=== PATIENT | female | born 1975 | race Caucasian/White ===

== ENCOUNTER 2018-01-03 08:30 | Emergency (ER) | payer OTHER ==
[~2018-01-03 08:30] MED LIST changes: -CEPH500T7 PO; -DOCU-202 PO; -METH-543 PO; -NAPR375T44 PO; -OXYC-373 PO; -PANT20TA27 PO; -SULF1TAB24 PO; -TRAM-420 PO
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
[2018-01-03] MEDS ORDERED: NAPROXEN 500 MG TAB PO ONE (08:40)
[2018-01-03] MEDS ORDERED: NAPR375T44 PO (09:14)
[2018-01-03] MEDS ORDERED: CEPH500T7 PO (09:14)
[2018-01-03 09:31] VITALS: BP 127/75
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
[2018-01-03] MEDS ORDERED: METH-543 PO (09:46)
== END 2018-01-03 09:48 | disposition home or self-care (01) ==
LOC: ER 08:33
DX: N30.00 Acute cystitis without hematuria (principal); M54.5 Low back pain; V43.52XA Car driver injured in collision with other type car in traffic accident, initial encounter
CPT/HCPCS: 72072; 72120; 81001; 99283

== ENCOUNTER 2018-01-03 13:18 | Inpatient (IN) | payer OTHER ==
[2018-01-03] VITALS (13 sets, daily range): BP systolic 81–113; BP diastolic 48–81
[~2018-01-03] VITALS: Ht 172.7 cm; Wt 104.8 kg
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
[~2018-01-03 13:18] MED LIST changes: +CEPH500T7 PO; +METH-543 PO; +NAPR375T44 PO
[2018-01-03] MEDS ORDERED: NS(*) 0.9% 1000 ML BAG 1,000 ML IV ONE ×2 (13:19→15:50)
[2018-01-03] MEDS ORDERED: IOPAMIDOL 76% 75 ML INFUS BTL 75 ML ONE (13:31)
[2018-01-03 13:32] LABS: PLATELET COUNT, AUTOMATED 493 K/uL (150-450)
--- NOTE | 2018-01-03 13:41 | EKG ---
FACILITY: [facility] - [place] PATIENT NAME: MURTAZA SMALLS : [id number] MR: [id number] V: [id number] EXAM DATE: ORDERING PHYSICIAN: DAVIDA FERRO TECHNOLOGIST: FAIZAN Martínez Reason : SYNCOPE Blood Pressure : / mmHG Vent. Rate : 099 BPM Atrial Rate : 099 BPM P-R Int : 130 ms QRS Dur : 080 ms QT Int : 328 ms P-R-T Axes : 048 020 039 degrees QTc Int : 420 ms Normal sinus rhythm Normal ECG No previous ECGs available Confirmed by SOFIA LOCK ([id number]) on 01/03/2018 11:23:58 PM Referred By: PILLO Confirmed By:SOFIA LOCK
[2018-01-03] MEDS ORDERED: EMS NS 0.9%(*) 1000 ML BAG 1,000 ML IV ONE (13:50)
--- NOTE | 2018-01-03 14:52 | RADIOLOGY IMAGING REPORT ---
[place] [facility] [place] NAME: Francine Renteria : 1975 MR: [id number] V: [id number] EXAM DATE: ORDERING PHYSICIAN: DAVIDA FERRO TECHNOLOGIST: Location: [facility] - [place] Patient: Francine Renteria : 1975 Visit/Account:[id number] Date of Sevice: 01/03/2018 EXAMINATION: CT Head without intravenous contrast CT Cervical spine without intravenous contrast HISTORY: Trauma TECHNIQUE: Head: Axial images were obtained from the skull base to the vertex without intravenous contrast. Sa gittal and coronal reformatted images are also submitted. Cervical spine: Axial images were obtained from the skull base through the upper thoracic spine with out IV contrast administration. Coronal and sagittal reformatted images were obtained from the axial source data. One of the following dose optimization techniques was utilized in the performance of this exam: Autom ated exposure control; adjustment of the mA and/or kV according to the patient's size; or use of an i terative reconstruction technique. Specific details can be referenced in the facility's radiology C T exam operational policy. COMPARISON: None. FINDINGS: HEAD: Brain volume: Normal. Ventricles: Negative. Acute ischemic changes: None. Hemorrhage: None. Masses / edema: None. Odell-white: Negative. White matter: Negative. Vessels: Negative. Extra-axial: Negative. Calvarium / skull base: Negative. Visualized sinuses / orbits: Mild mucosal thickening in the left maxillary sinus. Mild aerated secre tions in the right sphenoid sinus. Rightward nasal septal deviation. CERVICAL SPINE: Alignment: Straightening and slight reversal of the normal lordosis with mild convex rightward curvat ure. Cranio-cervical junction: Small bone island in the right superior C2 vertebral body. Otherwise negati ve. Vertebral bodies: Negative. Posterior elements: Negative. Hardware: None. Disc Spaces: Degenerative disc disease at C4-C5, C5-C6, and C6-C7. Soft tissues: Negative. Visualized upper chest: Trace left pneumothorax. IMPRESSION: 1. No acute intracranial abnormality. 2. No acute cervical spine fracture. Multilevel degenerative disc disease with straightening of the n ormal lordosis and mild convex rightward curvature. 3. Trace left pneumothorax. Results were called to DAVIDA FERRO at 01/03/2018 2:47 PM. Report Dictated By: Adair Marinelli MD at 01/03/2018 2:26 PM Report E-Signed By: Adair Marinelli MD at 01/03/2018 2:48 PM WSN:[id number]
--- NOTE | 2018-01-03 14:52 | RADIOLOGY IMAGING REPORT ---
FACILITY: [facility] PATIENT NAME: Francine Renteria : 1975 MR: [id number] V: [id number] EXAM DATE: ORDERING PHYSICIAN: DAVIDA FERRO TECHNOLOGIST: Location: [facility] [place] Patient: Francine Renteria : 1975 Visit/Account:[id number] Date of Sevice: 01/03/2018 EXAMINATION: CT chest with IV contrast CT abdomen with IV contrast CT pelvis with IV contrast HISTORY: Trauma. TECHNIQUE: Spiral scan was obtained through the chest, abdomen and pelvis during injection of nonio mable iodinated intravenous contrast. Sagittal and coronal reformatted images are also submitted. One of the following dose optimization techniques was utilized in the performance of this exam: Autom ated exposure control; adjustment of the mA and/or kV according to the patient's size; or use of an i terative reconstruction technique. Specific details can be referenced in the facility's radiology C T exam operational policy. CONTRAST: 75 mL of IV Isovue-370 COMPARISON: None. FINDINGS: CT THORAX: Lungs / pleura: Trace left pneumothorax. Otherwise negative. Mediastinum / natacha: Small hiatal hernia. Heart / pericardium: Negative. Vessels: Negative. Musculoskeletal / Body wall: Bone island in the right humeral head. Nondisplaced left lateral 7th ri b fracture. Healed left lateral 6th rib fracture. Nondisplaced left anterior 4th, 5th, and 6th rib fr actures. Lymph node assessment: Negative. Lower neck: Negative. CT ABDOMEN AND PELVIS: Liver / biliary: Cholelithiasis without evidence of acute cholecystitis. Otherwise negative. Pancreas: Negative. Spleen: There are 2 small lacerations in the lateral spleen measuring up to 2.8 cm in length. Large s ubcapsular hematoma measuring up to 2.8 cm in thickness. Moderate hemoperitoneum. No contrast extrava sation. Adrenal glands: Negative. Kidneys: Negative. Pelvic structures: Negative. Bowel: Mild colonic diverticulosis. No evidence of acute diverticulitis. Normal appendix. No bowel ob struction or bowel wall thickening. Peritoneum / retroperitoneum / mesenteries: Moderate hemoperitoneum. No free air. Vessels: Negative. Musculoskeletal / Body wall: Mildly displaced left L1-L4 transverse process fractures. Lymph node assessment: Negative. IMPRESSION: 1. Two small splenic lacerations the lateral spleen measuring up to 2.8 cm in length. Large subcapsul ar hematoma surrounding the spleen measuring up to 2.8 cm in thickness. Moderate hemoperitoneum. No c ontrast extravasation. Findings are consistent with grade 3 splenic injury. 2. Trace left pneumothorax. 3. Nondisplaced left anterior 4th, 5th, and 6th rib fractures. Nondisplaced left lateral 7th rib frac ture. 4. Mildly displaced left L1-L4 transverse process fractures. 5. Cholelithiasis with no evidence of acute cholecystitis. 6. Small hiatal hernia. 7. Mild colonic diverticulosis with no evidence of acute diverticulitis. Results were called to DAVIDA FERRO at 01/03/2018 2:44 PM. Report Dictated By: Adair Marinelli MD at 01/03/2018 2:33 PM Report E-Signed By: Adair Marinelli MD at 01/03/2018 2:47 PM WSN:[id number]
--- NOTE | 2018-01-03 14:53 | RADIOLOGY IMAGING REPORT ---
[place] [facility] [place] NAME: Francine Renteria : 1975 MR: [id number] V: [id number] EXAM DATE: ORDERING PHYSICIAN: DAVIDA FERRO TECHNOLOGIST: Location: [facility] - [place] Patient: Francine Renteria : 1975 Visit/Account:[id number] Date of Sevice: 01/03/2018 EXAMINATION: CT Head without intravenous contrast CT Cervical spine without intravenous contrast HISTORY: Trauma TECHNIQUE: Head: Axial images were obtained from the skull base to the vertex without intravenous contrast. Sa gittal and coronal reformatted images are also submitted. Cervical spine: Axial images were obtained from the skull base through the upper thoracic spine with out IV contrast administration. Coronal and sagittal reformatted images were obtained from the axial source data. One of the following dose optimization techniques was utilized in the performance of this exam: Autom ated exposure control; adjustment of the mA and/or kV according to the patient's size; or use of an i terative reconstruction technique. Specific details can be referenced in the facility's radiology C T exam operational policy. COMPARISON: None. FINDINGS: HEAD: Brain volume: Normal. Ventricles: Negative. Acute ischemic changes: None. Hemorrhage: None. Masses / edema: None. Odell-white: Negative. White matter: Negative. Vessels: Negative. Extra-axial: Negative. Calvarium / skull base: Negative. Visualized sinuses / orbits: Mild mucosal thickening in the left maxillary sinus. Mild aerated secre tions in the right sphenoid sinus. Rightward nasal septal deviation. CERVICAL SPINE: Alignment: Straightening and slight reversal of the normal lordosis with mild convex rightward curvat ure. Cranio-cervical junction: Small bone island in the right superior C2 vertebral body. Otherwise negati ve. Vertebral bodies: Negative. Posterior elements: Negative. Hardware: None. Disc Spaces: Degenerative disc disease at C4-C5, C5-C6, and C6-C7. Soft tissues: Negative. Visualized upper chest: Trace left pneumothorax. IMPRESSION: 1. No acute intracranial abnormality. 2. No acute cervical spine fracture. Multilevel degenerative disc disease with straightening of the n ormal lordosis and mild convex rightward curvature. 3. Trace left pneumothorax. Results were called to DAVIDA FERRO at 01/03/2018 2:47 PM. Report Dictated By: Adair Marinelli MD at 01/03/2018 2:26 PM Report E-Signed By: Adair Marinelli MD at 01/03/2018 2:48 PM WSN:[id number]
[2018-01-03] MEDS ORDERED: fentaNYL CITR 100 MCG/2 ML AMP IVP ONE (15:50)
[2018-01-03] MEDS ORDERED: ONDANSETRON 4 MG/2 ML VIAL IVP ONE (15:50)
--- NOTE | 2018-01-03 15:54 | RADIOLOGY IMAGING REPORT ---
[place] [facility] [place] Francine Renteria : 1975 MR: [id number] V: [id number] EXAM DATE: ORDERING PHYSICIAN: VANDANA TATE TECHNOLOGIST: Location: [facility] Patient: Francine Renteria : 1975 Visit/Account:[id number] Date of Sevice: 01/03/2018 Exam type: CHEST SINGLE AP History: eval for pneumothorax Comparison: Two-view chest July 03, 2017. And CT chest abdomen pelvis performed today Findings: The trace left-sided pneumothorax was better depicted on today's CT of the chest. There may be a tra ce pneumothorax or pneumomediastinum along the left heart border. The lungs appear free of consolida tion. No demonstration of a pleural effusion. Cardiac silhouette is normal in size. The trachea is in midline. IMPRESSION: 1. There may be a trace pneumothorax or pneumomediastinum along the left lateral heart border Report Dictated By: Annie Ely MD at 01/03/2018 3:46 PM Report E-Signed By: Annie Ely MD at 01/03/2018 3:50 PM WSN:[email or web address]
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
[2018-01-03] MEDS ORDERED: NALOXONE HCL 0.4 MG/ML VIAL IVP PRN (17:20)
[2018-01-03] MEDS ORDERED: MORPHINE 1 MG/ML 30 ML PCA IV PRN (17:20)
[2018-01-03] MEDS: D5 1/2 NS(*) 1000 ML BAG 1,000 ML IV PRN (18:20)
[2018-01-03 20:34] LABS: INR 1.04
[2018-01-03] MEDS: TRIMETH/SULFA DS 160-800MG TAB PO SCH (20:48)
[2018-01-04] VITALS (43 sets, daily range): BP systolic 78–116; BP diastolic 51–80; Ht 172.7 cm; Wt 104.8 kg
[2018-01-04] MEDS: ACETAMINOPHEN 500 MG TAB PO SCH ×3 (01:07→17:07)
[2018-01-04] MEDS ORDERED: CALCIUM CARBONATE 500 MG CHEW PO PRN (01:20)
[2018-01-04] MEDS: D5 1/2 NS(*) 1000 ML BAG 1,000 ML IV PRN ×2 (02:04→10:43)
[2018-01-04 05:39] LABS: PLATELET COUNT, AUTOMATED 290 K/uL (150-450)
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
[2018-01-04] MEDS: TRIMETH/SULFA DS 160-800MG TAB PO SCH ×2 (08:53→20:16)
[2018-01-04] MEDS: ONDANSETRON 4 MG/2 ML VIAL IVP PRN (10:08)
[2018-01-04] MEDS: PANTOPRAZOLE SOD 40 MG IV VIAL IVP SCH (10:08)
[2018-01-04] MEDS ORDERED: D5 1/2 NS(*) 1000 ML BAG 1,000 ML IV PRN (17:15)
[2018-01-05] VITALS (18 sets, daily range): BP systolic 88–111; BP diastolic 53–70
[2018-01-05] MEDS: ACETAMINOPHEN 500 MG TAB PO SCH ×3 (00:38→17:12)
[2018-01-05 05:25] LABS: PLATELET COUNT, AUTOMATED 246 K/uL (150-450)
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
[2018-01-05] MEDS ORDERED: oxyCODONE HCL 5 MG CAP PO PRN (07:50)
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
[2018-01-05] MEDS: TRIMETH/SULFA DS 160-800MG TAB PO SCH ×2 (08:35→21:06)
[2018-01-05] MEDS: PANTOPRAZOLE SOD 40 MG IV VIAL IVP SCH (08:35)
[2018-01-05] MEDS: KETOROLAC 15 MG/ML VIAL IVP PRN (08:36)
[2018-01-05] MEDS: ONDANSETRON 4 MG/2 ML VIAL IVP PRN (12:33)
[2018-01-06] MEDS: ACETAMINOPHEN 500 MG TAB PO SCH (00:52)
[2018-01-06] MEDS: KETOROLAC 15 MG/ML VIAL IVP PRN (01:09)
[2018-01-06 03:17] VITALS: BP 111/59
[2018-01-06 05:49] LABS: PLATELET COUNT, AUTOMATED 274 K/uL (150-450)
[2018-01-06 06:48] VITALS: BP 108/69
[2018-01-06] MEDS ORDERED: MAGNESIUM HYDROXIDE* 30ML UDCP PO PRN (06:50)
[2018-01-06 07:48] VITALS: BP 105/68
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
[2018-01-06] MEDS: PANTOPRAZOLE SOD 40 MG IV VIAL IVP SCH ×2 (09:00→09:37)
[2018-01-06] MEDS: POLYETHYLENE GLYCOL 17 GM PKT PO SCH (09:36)
[2018-01-06] MEDS: DOCUSATE SODIUM 100 MG CAP PO SCH ×2 (09:37→20:04)
[2018-01-06] MEDS: TRIMETH/SULFA DS 160-800MG TAB PO SCH (09:37)
[2018-01-06 11:06] VITALS: BP 116/81
[2018-01-06] MEDS: PANTOPRAZOLE SOD 40 MG TABEC PO SCH (11:09)
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
[2018-01-06 15:22] VITALS: BP 117/73
[2018-01-06] MEDS ORDERED: diphenhydrAMINE 25 MG CAP PO PRN (18:15)
[2018-01-06] MEDS: ACETAMINOPHEN 325 MG TAB PO PRN (20:04)
[2018-01-06 23:29] VITALS: BP 107/71
[2018-01-07 03:17] VITALS: BP 125/85
[2018-01-07 06:06] LABS: PLATELET COUNT, AUTOMATED 307 K/uL (150-450)
[2018-01-07 07:15] VITALS: BP 121/67
[2018-01-07] MEDS ORDERED: OXYC-373 PO (08:02)
[2018-01-07] MEDS ORDERED: DOCU-202 PO (08:02)
[2018-01-07] MEDS ORDERED: SULF1TAB24 PO (08:02)
--- NOTE | 2018-01-07 08:13 | Short(Outpt) Discharge Summary ---
Discharge Summary Reason for Hosp/Final Diag: (1) Spleen injury Status: Acute Hospital Course & Plan: Grade III spleen with moderate hemoperitoneum - admit to ICU - q6 CBC - NPO - ice chips ok - Type and screen - if dropping hgb, will discuss surgical exploration vs transfer for possible IR intervention 01/04: Hgb to 8.2, otherwise hemodynamically stable. Q6 CBC today, if stable this afternoon go to q12. NPO with sips/chips ok. OK for bathroom. 01/05: Hgb stable, tolerating PO. Transition to PO meds, advance diet. Recheck labs in AM. Transfer to floor. 01/06/18: Doing well. H/H stable. Will have her work with PT/OT today and if she does well then she can go home later today or tomorrow. 01/07/18: Doing well. H/H remains stable. Will d/c to home today with splenic injury instructions/warnings. (2) Urinary tract infection Status: Acute Hospital Course & Plan: UTI - nitrite and LE positive UA - culture pending - admit with abx 01/04: continue bactrim - plan 3 day course 01/05: complete abx tomorrow AM (3) Pneumothorax on left Status: Acute Hospital Course & Plan: Occult pneumothorax - CXR in AM - pulm toilet, IS, pain control 01/04: no evidence of pneumothorax on AM CXR 01/05: no residual PTX. (4) Multiple rib fractures Status: Acute Hospital Course & Plan: Multiple rib fxs: - pain control - retention manager, schedule tylenol, consider toradol - IS, pulm toilet - AM CXR 01/04: continue retention manager for pain, scheduled tylenol. IS to 1000ml, if still poor IS may add toradol. 01/05: transition to PO pain meds, d/c retention manager. Encourage IS, OOB, ambulation. (5) Multiple transverse process fractures Status: Acute Hospital Course & Plan: Multiple TP fxs: pain control 01/04: Pain well controlled Departure Discharge to: Home, Self Care Discharge Instructions Home Meds Active Scripts Oxycodone Hcl/Acetaminophen (OXYCODONE-ACETAMINOPHEN 5-325) 1 Each Tablet, 1-2 TAB PO Q4H Y for PAIN, #20 TAB 0 Refills Prov:SOFIA CARRERA MD 01/07/18 Sulfamethoxazole/Trimethoprim (SULFAMETHOXAZOLE-TMP DS TABLET) 1 Each Tablet, 1 TAB PO Q12H, #10 TAB 0 Refills Prov:SOFIA CARRERA MD 01/07/18 Docusate Sodium (DOCUSATE SODIUM) 100 Mg Capsule, 1 CAP PO BID, #30 CAPSULE 0 Refills Prov:SOFIA CARRERA MD 01/07/18 Methocarbamol (ROBAXIN-750) 750 Mg Tablet, 1500 MG PO TID for Muscle Relaxant, # 15 TAB 0 Refills Prov:DAVIDA FERRO MD 01/03/18 Naproxen (NAPROXEN) 375 Mg Tablet, 375 MG PO TID for PAIN, #30 TAB 0 Refills Prov:DAVIDA FERRO MD 01/03/18 Cephalexin 500 Mg Tab (KEFLEX 500 MG TAB) 500 Mg Tablet, 500 MG PO Q6H, #20 TAB 0 Refills TAKE ONE TABLET BY MOUTH EVERY SIX HOURS Prov:DAVIDA FERRO MD 01/03/18 Discontinued Reported Medications Vitamin B Complex (B COMPLETE) 1 Each Tablet, 1 EACH PO QDAY 10/27/16 Multivitamin (MULTI VITAMIN DAILY) 1 Each Tablet, 1 EACH PO QDAYA 10/27/16 Discontinued Scripts Ondansetron (ZOFRAN ODT) 4 Mg Tab.rapdis, 4 MG PO Q6H Y for NAUSEA/VOMITING, # 20 TAB.DM Prov:JESSICA DYSON BENEFITS ANALYST 10/27/16 Follow up Referrals: General Surgery - 01/17/18 @ Surgery, General with Sofia Carrera Md You have a follow up appointment scheduled with Dr. Carrera on 01/17/18, at 11:00am. Diet: Regular Activity: No Heavy Lifting, No Exertion Special Instructions: Please follow the instructions on the patient handout for splenic injuries. Problem Qualifiers (1) Spleen injury: Encounter type: initial encounter Qualified Codes: S36.00XA - Unspecified injury of spleen, initial encounter (2) Urinary tract infection: Urinary tract infection type: acute cystitis Hematuria presence: without hematuria Qualified Codes: N30.00 - Acute cystitis without hematuria (3) Multiple rib fractures: Encounter type: initial encounter Fracture type: closed Laterality: left Qualified Codes: S22.42XA - Multiple fractures of ribs, left side, initial encounter for closed fracture SOFIA CARRERA MD Jan 07, 2018 08:13
[2018-01-07] MEDS: PANTOPRAZOLE SOD 40 MG TABEC PO SCH (08:50)
[2018-01-07] MEDS: ACETAMINOPHEN 325 MG TAB PO PRN (08:52)
[2018-01-07] MEDS: DOCUSATE SODIUM 100 MG CAP PO SCH (08:52)
[2018-01-07] MEDS: POLYETHYLENE GLYCOL 17 GM PKT PO SCH (08:52)
== END 2018-01-07 10:15 | disposition home or self-care (01) | DRG 964 ==
LOC: ER 13:18 → ICU 16:34 → MED 01-05 10:39
PROVIDERS: ADMIT Surgery; ATTEND Surgery
DX: S36.031A Moderate laceration of spleen, initial encounter (principal); N30.00 Acute cystitis without hematuria; S27.0XXA Traumatic pneumothorax, initial encounter; S22.42XA Multiple fractures of ribs, left side, initial encounter for closed fracture; S32.019A Unspecified fracture of first lumbar vertebra, initial encounter for closed fracture; S32.029A Unspecified fracture of second lumbar vertebra, initial encounter for closed fracture; S32.039A Unspecified fracture of third lumbar vertebra, initial encounter for closed fracture; S32.049A Unspecified fracture of fourth lumbar vertebra, initial encounter for closed fracture; M80.052A Age-related osteoporosis with current pathological fracture, left femur, initial encounter for fracture; M80.00XA Age-related osteoporosis with current pathological fracture, unspecified site, initial encounter for fracture; V43.52XA Car driver injured in collision with other type car in traffic accident, initial encounter; Y93.89 Activity, other specified; Y92.410 Unspecified street and highway as the place of occurrence of the external cause; Y99.8 Other external cause status
CPT/HCPCS: 36415; 36416; 70450; 71045; 71260; 72125; 74177; 82040; 82247; 82310; 82374; 82435; 82565; 82947; 82948; 83605; 83690; 83735; 84075; 84100; 84132; 84155; 84295; 84450; 84460; 84520; 84703; 85025; 85027; 85610; 85730; 86850; 86900; 86901; 87077; 87088; 87186; 93005; 96361; 96374; 96375; 97161; 97165; 99285; C9113; J1885; J2270; J2405; J3010; J7030; Q0163; Q9967

== ENCOUNTER → 2018-01-03 | Outpatient (CLI) | payer OTHER ==
[~2018-01-03] MED LIST: CEPH500T7 PO; DOCU-202 PO; METH-543 PO; MULT1TAB64 PO; NAPR375T44 PO; ONDA4TAB PO; OXYC-373 PO; PANT20TA27 PO; SULF1TAB24 PO; TRAM-420 PO; VITA-324 PO
[2018-01-04 11:16] VITALS: BMI 35.1
== END ==
LOC: AMB 12:43
PROVIDERS: ATTEND Nurse Practitioner
DX: R55 Syncope and collapse (principal); R11.0 Nausea; R42 Dizziness and giddiness; R07.9 Chest pain, unspecified; R10.30 Lower abdominal pain, unspecified
CPT/HCPCS: A0425; A0427

== ENCOUNTER → 2018-01-13 | Outpatient (CLI) | payer OTHER ==
[2018-01-04 11:16] VITALS: BMI 35.1
[~2018-01-13] MED LIST changes: +DOCU-202 PO; +OXYC-373 PO; +SULF1TAB24 PO
[2018-01-13 09:14] LABS: PLATELET COUNT, AUTOMATED 507 K/uL (150-450)
[2018-01-13 10:55] LABS: LDL CHOLESTEROL 112 mg/dl
== END ==
LOC: LAB 08:41
PROVIDERS: ATTEND Nurse Practitioner Psychiatric/Mental Health
DX: Z00.00 Encounter for general adult medical examination without abnormal findings (principal)
CPT/HCPCS: 36415; 82040; 82247; 82306; 82310; 82374; 82435; 82465; 82565; 82607; 82947; 83718; 84075; 84132; 84155; 84295; 84443; 84450; 84460; 84478; 84520; 85025

== ENCOUNTER → 2018-02-19 | Outpatient (CLI) | payer OTHER ==
[2018-01-04 11:16] VITALS: BMI 35.1
[~2018-02-19] MED LIST changes: +PANT20TA27 PO; +TRAM-420 PO
[2018-02-19 08:34] LABS: PLATELET COUNT, AUTOMATED 388 K/uL (150-450)
== END ==
LOC: LAB 08:16
PROVIDERS: ATTEND Nurse Practitioner Family
DX: S36.00 Unspecified injury of spleen (principal); D64.9 Anemia, unspecified
CPT/HCPCS: 36415; 85025

== ENCOUNTER 2018-10-09 11:21 | Emergency (ER) | payer OTHER ==
[2018-01-04 11:16] VITALS: Wt 108.9 kg
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
[2018-10-09] MEDS ORDERED: NS(*) 0.9% 1000 ML BAG 1,000 ML IV ONE (11:54)
[2018-10-09] MEDS ORDERED: PROMETHAZINE 25 MG/ML 1 ML AMP IVP ONE (11:55)
[2018-10-09] MEDS ORDERED: KETOROLAC 15 MG/ML VIAL IVP ONE (11:55)
[2018-10-09] MEDS ORDERED: ORPHENADRINE 60MG/2ML INJ IVP ONE (11:55)
[2018-10-09] MEDS ORDERED: diphenhydrAMINE 50 MG/ML VIAL IVP ONE (11:55)
[2018-10-09 12:31] LABS: PLATELET COUNT, AUTOMATED 337 K/uL (150-450)
[2018-10-09] MEDS ORDERED: ONDANSETRON 4 MG/2 ML VIAL IVP ONE (13:20)
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
[2018-10-09 14:00] VITALS: BP 110/64
[2018-10-09] MEDS ORDERED: ONDA4TAB97 PO (14:32)
[2018-10-09] MEDS ORDERED: KET10 PO (14:32)
== END 2018-10-09 14:22 | disposition home or self-care (01) ==
LOC: ER 11:38
DX: G43.009 Migraine without aura, not intractable, without status migrainosus (principal); R07.81 Pleurodynia
CPT/HCPCS: 71046; 71100; 85025; 85651; 96374; 96375; 99284; J1200; J1885; J2360; J2405; J2550; J7030; 82040; 82247; 82310; 82374; 82435; 82565; 82947; 84075; 84132; 84155; 84295; 84450; 84460; 84520